=== PATIENT | female | born 1965 | race African-American/Black ===

== ENCOUNTER 2022-07-17 09:49 | Emergency (ER) | payer MEDICAID ==
[~2022-07-17] VITALS: Ht 162.6 cm; Wt 123.7 kg
[2022-07-17 10:36] VITALS: BP 144/85
[2022-07-17] MEDS ORDERED: KETOROLAC TROMETH 60MG/2ML VIAL IM ONE (11:15)
[2022-07-17] MEDS ORDERED: TRAM-297 PO (11:50)
[2022-07-17] MEDS ORDERED: METH750T22 PO (12:02)
[2022-07-17] MEDS ORDERED: BUTAPT PO (12:02)
== END 2022-07-17 12:05 | disposition home or self-care (01) ==
LOC: EDBD 09:49 → ER 09:49
DX: G44.209 Tension-type headache, unspecified, not intractable (principal); I11.0 Hypertensive heart disease with heart failure; I50.9 Heart failure, unspecified; J44.9 Chronic obstructive pulmonary disease, unspecified
CPT/HCPCS: 70450; 93005; 96372; 99285; J1885

== ENCOUNTER 2022-12-25 09:24 | Emergency (ER) | payer MEDICAID ==
[~2022-12-25] VITALS: Ht 162.6 cm; Wt 123.8 kg
[~2022-12-25 09:24] MED LIST: BUTAPT PO; METH-1182 PO; TRAM-297 PO
[2022-12-25 10:36] VITALS: BP 144/79; PULSE 64; RESP 18; TEMP 97.8; O2SAT 94
[2022-12-25 10:40] LABS: Basophils # (auto) 0 10 ^3/uL (0-0.2); Basophils % (auto) 0.5 % (0.0-2.0); Eosinophils # (auto) 0.1 10 ^3/uL (0-0.8); Eosinophils % (auto) 2.3 % (0.0-7.0); Hematocrit 43.9 % (36.0-46.0); Hemoglobin 14.9 g/dL (12.2-16.2); Mean Corpuscular Hgb Conc. 33.9 g/dL (32.0-36.0); Mean Corpuscular Volume 91.6 fL (80.0-100.0); Monocytes # (auto) 0.4 10 ^3/uL (0-1.3); Monocytes % (auto) 8.1 % (0.0-12.0); Neutrophils # (auto) 2.3 10 ^3/uL (1.6-8.6); Neutrophils % (auto) 48.1 % (37.0-80.0); Nucleated Red Blood Cells % 0.1 %; Red Blood Cells 4.79 10^6/uL (4.0-5.20); White Blood Cell 4.9 10^3/uL (4.4-10.8)
[2022-12-25 10:52] LABS: Alanine Aminotransferase 14 U/L (7-40); Albumin 3.8 g/dL (3.2-4.8); Alkaline Phosphatase 71 U/L (46-116); Aspartate Aminotransferase 19 U/L (13-40); BUN/Creatinine Ratio 18.8 (10.0-20.0); Bilirubin, Total 0.4 mg/dL (0.2-1.0); Blood Urea Nitrogen 15 mg/dL (9-23); Calcium 9.3 mg/dL (8.5-10.1); Carbon Dioxide 29 mmol/L (20-30); Glucose 102 mg/dL (74-106)
[2022-12-25 11:33] LABS: Anion Gap 6 (5-15); Chloride 103 mmol/L (98-107); Potassium 4.5 mmol/L (3.5-5.1); Sodium 138 mmol/L (136-145)
[2022-12-25 11:40] LABS: Magnesium 1.9 mg/dL (1.6-2.6)
[2022-12-25 11:42] LABS: INR 1.04 (0.9-1.15); Partial Thromboplastin Time 30.1 SEC (24.5-34.5); Prothrombin Time 10.9 sec (9.3-11.8)
[2022-12-25 11:54] LABS: COVID19 ANTIGEN SOFIA FIA NEGATIVE (NEGATIVE)
[2022-12-25 11:55] LABS: Rapid Influenza A Negative (Negative); Rapid Influenza B Negative (Negative)
[2022-12-25] MEDS ORDERED: cefTRIAXone 1GM/50ML D5W 50 ML IV ONE (12:30)
[2022-12-25] MEDS ORDERED: AZITHROMYCIN 500MG/ 250ML 250 ML IV ONE (12:30)
[2022-12-25 12:31] LABS: Urine Bacteria NONE SEEN /hpf (None Seen); Urine Blood Negative /uL (Negative); Urine Clarity HAZY (Clear); Urine Color Yellow (Yellow); Urine Protein, UAD TRACE (Negative); Urine Specific Gravity 1.017 (1.001-1.035); Urine Urobilinogen Normal (Negative); Urine WBC 446 /hpf (0 - 5); Urine pH 5.5 (5.0-8.0)
[2022-12-25] MEDS ORDERED: PROM1SOL4 PO (12:44)
[2022-12-25] MEDS ORDERED: AZIT500T66 PO (12:44)
[2022-12-25] MEDS ORDERED: LEVO500T91 PO (12:44)
== END 2022-12-25 13:09 | disposition left against medical advice (07) ==
LOC: ER 09:24
DX: J18.9 Pneumonia, unspecified organism (principal); R42 Dizziness and giddiness; J45.909 Unspecified asthma, uncomplicated; J44.9 Chronic obstructive pulmonary disease, unspecified; I11.0 Hypertensive heart disease with heart failure; I50.89 Other heart failure; Z79.899 Other long term (current) drug therapy; Z88.8 Allergy status to other drugs, medicaments and biological substances; Z91.040 Latex allergy status; Z20.822 Contact with and (suspected) exposure to COVID-19
CPT/HCPCS: 36415; 71045; 80053; 81001; 83605; 83735; 83880; 84484; 85025; 85610; 85730; 87040; 87426; 87804; 93005

== ENCOUNTER 2023-02-16 18:09 | Emergency (ER) | payer MEDICAID ==
[~2023-02-16] VITALS: Ht 160 cm; Wt 124.6 kg
[~2023-02-16 18:09] MED LIST changes: +AZIT500T66 PO; +LEVO500T91 PO; +PROM1SOL4 PO
[2023-02-16 22:21] LABS: COVID19 ANTIGEN SOFIA FIA NEGATIVE (NEGATIVE); Rapid Influenza A Negative (Negative); Rapid Influenza B Negative (Negative)
[2023-02-16] MEDS ORDERED: PRED20TA2 PO (22:52)
[2023-02-16] MEDS ORDERED: ALBUAER3 IN (22:52)
[2023-02-16] MEDS ORDERED: AZIT-43 PO (22:52)
[2023-02-16] MEDS ORDERED: cefTRIAXone SOD 1,000 MG VL IM ONE (23:00)
[2023-02-16] MEDS ORDERED: DexAMETHasone SOD PHOS 10MG/1ML VIAL INJ IM ONE (23:00)
[2023-02-16 23:22] VITALS: BP 129/84; PULSE 74; RESP 18; TEMP 98
[2023-02-16 23:23] VITALS: O2SAT 98
== END 2023-02-16 23:30 | disposition home or self-care (01) ==
LOC: ER 18:09
DX: J18.9 Pneumonia, unspecified organism (principal); I11.0 Hypertensive heart disease with heart failure; I50.9 Heart failure, unspecified; J44.9 Chronic obstructive pulmonary disease, unspecified; J45.909 Unspecified asthma, uncomplicated; Z90.710 Acquired absence of both cervix and uterus; Z20.822 Contact with and (suspected) exposure to COVID-19
CPT/HCPCS: 36415; 71045; 87426; 87804; 96372; 99284; J0696; J1100

== ENCOUNTER 2023-08-10 07:08 | Emergency (ER) | payer MEDICAID ==
[~2023-08-10] VITALS: Ht 162.6 cm; Wt 127.7 kg
[~2023-08-10 07:08] MED LIST changes: +ALBUAER3 IN; +AZIT-43 PO; +BUTA-259 PO; -BUTAPT PO; +PRED20TA2 PO
[2023-08-10] MEDS: ALBUTEROL SULF 2.5 MG/0.5ML(0.5%) NEB SOLN NEB ONE ×2 (08:45→09:22)
[2023-08-10] MEDS: IPRATROPIUM BROM 0.5 MG/2.5ML INH SOL NEB ONE ×2 (08:45→09:22)
[2023-08-10] MEDS ORDERED: BENZ100C97 PO (08:50)
[2023-08-10] MEDS ORDERED: AUG875T PO (08:50)
[2023-08-10] MEDS ORDERED: ACET500T58 PO (08:50)
[2023-08-10] MEDS ORDERED: PROM1SOL4 PO (08:50)
[2023-08-10] MEDS ORDERED: IBUP-1454 PO (08:50)
[2023-08-10] MEDS: LIDOCAINE 1% HCL (LOCAL ANESTH.) INJ 20ML MDV IJ ONE (08:51)
[2023-08-10] MEDS: DexAMETHasone SOD PHOS 10MG/1ML VIAL INJ IM ONE (08:58)
[2023-08-10] MEDS: cefTRIAXone SOD 1,000 MG VL IM ONE (08:59)
[2023-08-10] MEDS: BUDESONIDE (INHALATION) 0.5 MG/2 ML NEB NEB ONE (09:22)
[2023-08-10 09:50] VITALS: BP 173/77; PULSE 70; RESP 18; TEMP 97.6; O2SAT 91
== END 2023-08-10 10:04 | disposition home or self-care (01) ==
LOC: ER 07:08
DX: J18.9 Pneumonia, unspecified organism (principal); I11.0 Hypertensive heart disease with heart failure; I50.9 Heart failure, unspecified; J44.9 Chronic obstructive pulmonary disease, unspecified; Z90.49 Acquired absence of other specified parts of digestive tract; Z90.710 Acquired absence of both cervix and uterus
CPT/HCPCS: 71046; 94640; 96372; 99284; J0696; J1100; J2001; J7644

== ENCOUNTER 2023-11-27 15:59 | Emergency (ER) | payer MEDICAID ==
[~2023-11-27] VITALS: Ht 162.6 cm; Wt 126.0 kg
[~2023-11-27 15:59] MED LIST changes: +ACET500T58 PO; +AUG875T PO; +BENZ100C97 PO; +IBUP-1454 PO
[2023-11-27 16:30] VITALS: BP 149/78; PULSE 85; RESP 18; TEMP 97.1; O2SAT 92
[2023-11-27] MEDS: cefTRIAXone SOD 1,000 MG VL IM ONE (16:44)
[2023-11-27] MEDS ORDERED: CLIN1CAP70 PO (16:54)
[2023-11-27] MEDS ORDERED: DOXY1CAP58 PO (16:54)
== END 2023-11-27 17:03 | disposition home or self-care (01) ==
LOC: ER 15:59
DX: L73.2 Hidradenitis suppurativa (principal); E66.01 Morbid (severe) obesity due to excess calories; I11.0 Hypertensive heart disease with heart failure; I50.9 Heart failure, unspecified; J44.9 Chronic obstructive pulmonary disease, unspecified; Z68.42 Body mass index [BMI] 45.0-49.9, adult; Z98.890 Other specified postprocedural states; Z88.8 Allergy status to other drugs, medicaments and biological substances; Z91.040 Latex allergy status; Z79.899 Other long term (current) drug therapy
CPT/HCPCS: 96372; 99283; J0696

== ENCOUNTER 2025-03-28 12:09 | Emergency (ER) | payer MEDICAID ==
[~2025-03-28] VITALS: Ht 162.6 cm; Wt 121.1 kg
[~2025-03-28 12:09] MED LIST changes: +CLIN1CAP70 PO; +DOXY1CAP58 PO
[2025-03-28 12:19] VITALS: TEMP 98.5
--- NOTE | 2025-03-28 13:40 | DVH ---
CLINICAL HISTORY: COUGH AND WHEEZIN TECHNIQUE: Single view of the chest was obtained. COMPARISON: XY CHEST TWO VIEWS ROUTINE on DOS: 08/10/23, XY CHEST XRAY 1 VIEW on DOS: 02/16/23, XY CHEST PORTABLE on DOS: 12/25/22 FINDINGS: The heart size is mildly enlarged with interstitial thickening. There is no dense consolidation. IMPRESSION: Interstitial thickening. Favoring mild pulmonary vascular congestion.
--- NOTE | 2025-03-28 13:53 | ED.PDOC ---
History of Present Illness HPI Comments A 59 YEAR OLD FEMALE PRESENTS TO THE ED WITH COMPLAINT OF FLU-LIKE ILLNESS. PATIENT REPORTS THAT SHE HAS BEEN EXPERIENCING A SORE THROAT WITH ASSOCIATED EAR PAIN, SOB, COUGH, BODY ACHES, AND NASAL CONGESTION SINCE LAST NIGHT. PATIENT DENIES FEVER, CHILLS, CHEST PAIN, ABDOMINAL PAIN, NAUSEA, VOMITING, HEADACHE, OR OTHER COMPLAINTS. NO OTHER SYMPTOMS OR MODIFYING FACTORS AT THIS TIME. PATIENT IS ALERT, ORIENTED X 4, AND HAS STEADY GAIT. Chief Complaint: Flu like Time Seen by MD: 13:58 Primary Care Provider: [facility] Reviewed Notes: Nurses Notes, Medications, Allergies Allergies: Coded Allergies: Latex (Verified Allergy, Unknown, 07/17/22) Meperidine (Verified Allergy, Unknown, 07/17/22) NSAIDs (Verified Allergy, Unknown, 07/17/22) Nifedipine (Verified Allergy, Unknown, 07/17/22) Prochlorperazine (Verified Allergy, Unknown, 07/17/22) Home Meds Active Scripts Promethazine-Dm (Promethazine Dm 6.25-15 mg/5Ml) 1 Lisbeth Lisbeth, 5 ML PO TID, #150 ML Prov:QUIQUE CONNOLLY 03/28/25 Ibuprofen (Ibuprofen) 800 Mg Tab, 1 TAB PO TID, #30 TAB Prov:QUIQUE CONNOLLY 03/28/25 Amoxicillin & Pot Clavulanate (AUGMENTIN TABLET) 875 Mg Tb, 875 MG PO BID, #20 TAB Prov:QUIQUE CONNOLLY 03/28/25 Clindamycin Hcl (Clindamycin Hcl) 300 Mg Cap, 300 MG PO QID, #40 CAP Prov:QUIQUE CONNOLLY 11/27/23 Doxycycline (Monohydrate) (Doxycycline) 100 Mg Cap, 100 MG PO BID, #20 CAP Prov:QUIQUE CONNOLLY 11/27/23 Acetaminophen (Acetaminophen) 500 Mg Tab, 500 MG PO QID for 10 Days, #40 TAB 0 Refills Prov:FABIOLA GEIGER STRAIGHTENING PRESS OPERATOR 08/10/23 Ibuprofen (Ibuprofen) 600 Mg Tab, 1 TAB PO TID for 10 Days, #30 TAB 0 Refills Prov:FABIOLA GEIGER [employer]ENING PRESS OPERATOR 08/10/23 Promethazine-Dm (Promethazine Dm 6.25-15 mg/5Ml) 1 Lisbeth Lisbeth, 5 ML PO TIDPRN PRN for 10 Days, #150 ML 0 Refills Prov:FABIOLA GEIGER STRAIGHTENING PRESS OPERATOR 08/10/23 Benzonatate (Benzonatate) 100 Mg Cap, 1 CAP PO TID for 10 Days, #30 CAP 0 Refills Prov:FABIOLA GEIGER STRAIGHTENING PRESS OPERATOR 08/10/23 Amoxicillin & Pot Clavulanate (AUGMENTIN TABLET) 875 Mg Tb, 875 MG PO BID for 5 Days, #10 TAB 0 Refills Prov:FABIOLA GEIGER STRAIGHTENING PRESS OPERATOR 08/10/23 Albuterol Sulfate (VENTOLIN MDI) 90 Mcg Ih, 2 PUFF IN Q6HPRN, #1 INH 0 Refills Prov:ANGELA LEVI 02/16/23 Prednisone (Prednisone) 20 Mg Tab, 20 MG PO BID for 5 Days, #10 TAB 0 Refills Prov:ANGELA LEVI 02/16/23 Azithromycin (Azithromycin) 250 Mg Tab, 250 MG PO DAILY MDD 500 for 5 Days, #6 TAB 0 Refills 2 TABLETS ORALLY ON DAY ONE, THEN 1 TABLET ORALLY DAILY FOR 4 DAYS Prov:ANGELA LEVI 02/16/23 Promethazine-Dm (Promethazine Dm 6.25-15 mg/5Ml) 1 Lisbeth Lisbeth, 5 ML PO TID, #150 ML Prov:QUIQUE CONNOLLY 12/25/22 Azithromycin (Azithromycin) 500 Mg Tab, 1 TAB PO DAILY, #5 TAB Prov:QUIQUE CONNOLLY 12/25/22 Levofloxacin Hemihydrate (LEVAQUIN 500 MG) 500 Mg Tab, 1 TAB PO DAILY, #10 TAB Prov:QUIQUE CONNOLLY 12/25/22 Methocarbamol (Methocarbamol) 750 Mg Tab, 750 MG PO QHSP PRN, #20 TAB Prov:QUIQUE CONNOLLY 07/17/22 Dfndjdrftg-Yfppgbouqkvjv-Enyaz (FIORICET TABLET) 1 Tab Tb, 1 TAB PO TID, #20 TAB Prov:QUIQUE CONNOLLY 07/17/22 Tramadol Hcl (Ultram) 50 Mg Tab, 1 TAB PO TID, #20 TAB Prov:QUIQUE CONNOLLY 07/17/22 Information Source: Patient Mode of Arrival: Ambulatory Severity: Moderate Timing: Hours Duration: Since onset Prehospital treatment: None Medication Refill: For: Other (EARS AND THROAT PSAIN, MILD COUGH ) Past Medical History PAST MEDICAL HISTORY: Asthma, CHF, COPD, HTN Surgical History: Appendectomy, , Hysterectomy SEAT COVERS TRIMMER History: Denies all SEAT COVERS TRIMMER Hx Family History Family History: Reviewed,noncontributory to illness Social History Smoker: Non-Smoker Alcohol: Denies ETOH Use Drugs: Denies Drug Use Lives In: Home Constitutional: reports: others (BODY ACHES); denies: chills, diaphoresis, fatigue, fever, malaise, sweats, weakness EENTM: reports: ear pain, nose congestion, throat pain; denies: blurred vision, double vision, ear bleeding, ear discharge, ear drainage, ear ringing, eye pain, eye redness, hearing loss, mouth pain, mouth swelling, nasal discharge, nose bleeding, nose pain, photophobia, tearing, throat swelling, voice changes, others Respiratory: reports: cough; denies: hemoptysis, orthopnea, SOB at rest, shortness of breath, SOB with excertion, stridor, wheezing, others Cardiovascular: denies: chest pain, dizzy spells, diaphoresis, Dyspnea on exertion, edema, irregular heart beat, left arm pain, lightheadedness, palpitations, PND, syncope, others Gastrointestinal: denies: abdomen distended, abdominal pain, blood streaked bowels, constipated, diarrhea, dysphagia, difficulty swallowing, hematemesis, melena, nausea, poor appetite, poor fluid intake, rectal bleeding, rectal pain, vomiting, others Genitourinary: denies: abnormal vagina bleeding, burning, dyspareunia, dysuria, flank pain, frequency, hematuria, incontinence, pain, , vagina discharge, urgency, others Neurological: denies: dizziness, fainting, headache, left sided numbness, left sided weakness, numbness, paresthesia, pre-existing deficit, right sided numbness, right sided weakness, seizure, speech problems, tingling, tremors, weakness, others Musculoskeletal: denies: back pain, gout, joint pain, joint swelling, muscle pain, muscle stiffness, neck pain, others Integumetry: denies: bruises, change in color, change in hair/nails, dryness, laceration, lesions, lumps, rash, wounds, others Allergic/Immunocompromised: denies: Difficulty Healing, Frequent Infections, Hives, Itching, others Hematologic/Lymphatic: denies: anemia, blood clots, easy bleeding, easy bruising, swollen glands, others Endocrine: denies: excessive hunger, excessive sweating, excessive thirst, excessive urination, flushing, intolerance to cold, intolerance to heat, unexplained weight gain, unexplained weight loss, others Psychiatric: denies: anxiety, bipolar disorder, depression, hopeless, panic disorder, schizophrenia, sleepless, suicidal, others All Other Systems: Reviewed and Negative Physical Exam General Appearance: No Apparent Distress, Obese HEENT: PERRL/EOMI, Pharyngeal Erythema (MILD TONSILLAR SWELLING, NO EXUDATES. ), TM Abnormal (L), TM Abnormal (R) Neck: Full Range of Motion, Non-Tender, Normal, Normal Inspection Respiratory: Chest Non-Tender, Lungs Clear, No Accessory Muscle Use, No Respiratory Distress, Normal Breath Sounds Cardiovascular: No Edema, No JVD, No Murmur, No Gallop, Normal Peripheral Pulses, Regular Rate/Rhythm Breast Exam: Deferred Gastrointestinal: No Organomegaly, Non Tender, No Pulsatile Mass, Normal Bowel Sounds, Soft Genitalia: Deferred Pelvic: Deferred Rectal: Deferred Extremities: No calf tenderness, Normal capillary refill, Normal inspection, Normal range of motion, Non-tender, No pedal edema Musculoskeletal : Apperance: Normal Neurologic: Alert, science interpreter II-XII nml as Tested, No Motor Deficits, Normal Affect, Normal Mood, No Sensory Deficits Cerebellar Function: Normal Reflexes: Normal Skin: Dry, Normal Color, Warm Peripheral Pulses: 2+ carotid (R), 2+ carotid (L) Lymphatic: No Adenopathy Was a procedure done? Was a procedure done?: No Differential Dx Considerations may include: OTITIS MEDIA, PHARYNGITIS, TONSILLITIS, URI X-Ray, Labs, Meds, VS Vital Signs Date Time Temp Pulse Resp B/P (MAP) Pulse Ox O2 Delivery O2 Flow Rate FiO2 03/28/25 14:05 71 18 174/89 (117) 97 03/28/25 14:05 18 97 Room Air 03/28/25 12:19 98.5 81 20 184/[address] [address] Ph: [phone] DIAGNOSTIC IMAGING Diagnostic Imaging Report : [id number] Signed PATIENT: EDSON DURAND ACCT: [id number] UNIT: [id number] : 1965 LOC: ER ROOM / BED: / AGE / SEX: 59 / F ADM STATUS: REG ER SERVICE 1300 ORDERING PHYSICIAN: QUIQUE CONNOLLY PROCEDURE(s): CXR1 - CHEST XRAY 1 VIEW REASON: COUGH AND WHEEZIN ORDER NUMBER(s): [id number], ACCESSION NUMBER(s): [id number] CLINICAL HISTORY: COUGH AND WHEEZIN TECHNIQUE: Single view of the chest was obtained. COMPARISON: XY CHEST TWO VIEWS ROUTINE on DOS: 08/10/23, XY CHEST XRAY 1 VIEW on DOS: 02/16/23, XY CHEST PORTABLE on DOS: 12/25/22 FINDINGS: The heart size is mildly enlarged with interstitial thickening. There is no dense consolidation. IMPRESSION: Interstitial thickening. Favoring mild pulmonary vascular congestion. ATED BY: CRUZ PETERSON MD DICTATED DATE/TIME: 03/28/251337 SIGNED BY: CRUZ PETERSON MD SIGNED DATE/TIME: 03/28/25 1338 CC: X-Ray, Labs, Meds, VS Comment EXTERNAL MEDICAL RECORDS REVIEWED: [NONE] INDEPENDENT HISTORIANS: [NONE] SOCIAL DETERMINANTS OF HEALTH: [NONE] LABS ORDERED: NONE REVIEWED AND INTERPRETED RESULTS: CHEST XR IMAGING ORDERED: CHEST XR TREATMENTS ORDERED: NONE PROCEDURES PERFORMED: NONE CRITICAL CARE TIME: NONE I HAVE DISCUSSED THE PATIENT WITH THE ATTENDING PHYSICIAN DR. SHIELDS AND HE AGREES WITH THE PATIENT'S PLAN OF CARE AND DISPOSITION. BASED ON HISTORY OF PRESENT ILLNESS, AND PHYSICAL EXAM, PATIENT WILL BE DISCHARGED HOME. DISCUSSED PLAN FOR DISCHARGE HOME WITH RX [IBUPROFEN, PHENERGAN DM, AUGMENTIN]. MEDICATION WARNINGS GIVEN. SHARED DECISION MAKING: DISCUSSED WITH PATIENT THAT THEIR WORKUP WAS NORMAL. PATIENT INSTRUCTED TO FOLLOW UP WITH PRIMARY CARE PROVIDER IN 1-2 DAYS FOR RE- EVALUATION OF SYMPTOMS. PATIENT VERBALIZES UNDERSTANDING TO RETURN TO ED FOR NEW OR WORSENING SYMPTOMS OR IF FOLLOW UP WITH PCP CANNOT BE OBTAINED. PATIENT FEELS COMFORTABLE GOING HOME AT THIS TIME. ALL QUESTIONS ADDRESSED AT TIME OF DISCHARGE. Time of 1ST Reevaluation: 14:12 Reevaluation 1ST: Improved Patient Education/Counseling: Diagnosis, Treatment, Need For Follow Up Family Education/Counseling: Diagnosis, Treatment, No Family Present Medical Screening: No EMC Exist At This Time SEPSIS Sepsis Screen Date sepsis recognized/suspect: Mar 28, 2025 Time Sepsis recognized/suspect: 1222 Recent Procedure: No On Antibiotic Therapy: No Respiratory Rate >20: No Heart Rate >90: No Temp<36 C (96.8 F) or >38.3 C: No SBP <90 or MAP <65 mmHG: No New Acute Mental Status Change: No Is the patient on CPAP, BIPAP,: No Physician Orders Chest Xray 1 View (03/28/25 13:00) Vital Signs Date Time Temp Pulse Resp B/P (MAP) Pulse Ox O2 Delivery O2 Flow Rate FiO2 03/28/25 14:05 71 18 174/89 (117) 97 03/28/25 14:05 18 97 Room Air 03/28/25 12:19 98.5 81 20 184/103 93 98.5 Departure 1 Departure Time of Disposition: 14:12 Impression: Primary Impression: Bilateral otitis media Qualified Codes: H65.03 - Acute serous otitis media, bilateral Additional Impression: Acute tonsillitis Qualified Codes: J03.90 - Acute tonsillitis, unspecified Disposition: 01 HOME / SELF CARE / HOMELESS Condition: Stable Additional Instructions: FOLLOW-UP WITH PCP IN 1 TO 2 DAYS. TAKE MEDICATIONS PRESCRIBED. RETURN TO ED FOR ANY NEW OR WORSENING SYMPTOMS. e-Prescriptions Promethazine-Dm (Promethazine Dm 6.25-15 mg/5Ml) 1 Lisbeth Lisbeth 5 ML PO TID, #150 ML Prov: QUIQUE CONNOLLY 03/28/25 Ibuprofen (Ibuprofen) 800 Mg Tab 1 TAB PO TID, #30 TAB Prov: QUIQUE CONNOLLY 03/28/25 Amoxicillin & Pot Clavulanate (AUGMENTIN TABLET) 875 Mg Tb 875 MG PO BID, #20 TAB Prov: QUIQUE CONNOLLY 03/28/25 Discharged With: Self Critical Care Note Critical Care Time?: No Stability Stability form required: No Heart Score Heart Score: Heart Score Response (Comments) Value History N/A 0 EKG N/A 0 Age N/A 0 Risk Factors N/A 0 Troponin N/A 0 Total 0 I personally scribed for QUIQUE CONNOLLY ([email or web address]) on 03/28/25 at 13:53. Electronically submitted by Angus Abraham ([email or web address]). I personally scribed for QUIQUE CONNOLLY ([email or web address]) on 03/28/25 at 13:59. Electronically submitted by Angus Abraham ([email or web address]). I personally scribed for QUIQUE CONNOLLY ([email or web address]) on 03/28/25 at 14:03. Electronically submitted by Angus Abraham ([email or web address]). QUIQUE CONNOLLY Mar 28, 2025 13:53
[2025-03-28] MEDS ORDERED: AUG875T PO (13:59)
[2025-03-28] MEDS ORDERED: IBUP-1456 PO (13:59)
[2025-03-28 14:05] VITALS: BP 174/89; PULSE 71; RESP 18; O2SAT 97
== END 2025-03-28 14:07 | disposition home or self-care (01) ==
LOC: ER 12:09
DX: H66.93 Otitis media, unspecified, bilateral (principal); J03.90 Acute tonsillitis, unspecified; I11.0 Hypertensive heart disease with heart failure; I50.9 Heart failure, unspecified; J44.89 Other specified chronic obstructive pulmonary disease; Z79.899 Other long term (current) drug therapy; Z90.710 Acquired absence of both cervix and uterus; Z90.49 Acquired absence of other specified parts of digestive tract; Z88.5 Allergy status to narcotic agent; Z79.891 Long term (current) use of opiate analgesic; Z79.1 Long term (current) use of non-steroidal anti-inflammatories (NSAID); Z91.040 Latex allergy status; Z88.6 Allergy status to analgesic agent; Z79.52 Long term (current) use of systemic steroids
CPT/HCPCS: 71045